=== PATIENT | male | born 1950 | race Two or more races ===

== ENCOUNTER 2020-08-04 10:56 | Emergency (ER) | payer OTHER ==
[~2020-08-04] VITALS: Ht 180.3 cm; Wt 127.5 kg
[2020-08-04 11:13] VITALS: Ht 180.3 cm; Wt 127.5 kg
[2020-08-04 12:28] VITALS: BP 144/63
== END 2020-08-04 12:28 | disposition home or self-care (01) ==
LOC: ED 10:56
DX: I10 Essential (primary) hypertension (principal); J45.909 Unspecified asthma, uncomplicated; E78.00 Pure hypercholesterolemia, unspecified; Z98.890 Other specified postprocedural states